=== PATIENT | male | born 1985 | race Two or more races ===

== ENCOUNTER 2018-03-09 16:58 | Emergency (ER) | payer OTHER ==
[~2018-03-09] VITALS: Ht 177.8 cm; Wt 83.5 kg
[2018-03-09 17:05] VITALS: BP 131/75
== END 2018-03-09 18:42 | disposition home or self-care (01) ==
LOC: ER 17:02
DX: S62.324A Displaced fracture of shaft of fourth metacarpal bone, right hand, initial encounter for closed fracture (principal); X58.XXXA Exposure to other specified factors, initial encounter; Y93.61 Activity, american tackle football; Y92.89 Other specified places as the place of occurrence of the external cause; Y99.8 Other external cause status
CPT/HCPCS: 29125; 73130; 99284; A4606; Z7610